=== PATIENT | female | born 1965 | race Caucasian/White ===

== ENCOUNTER 2019-12-09 13:51 | Inpatient (IN) | payer OTHER, MEDICAID ==
[~2019-12-09] VITALS: Ht 167.6 cm; Wt 56.9 kg
[2019-12-09 16:22] VITALS: BP 119/77
[2019-12-09] MEDS ORDERED: SODIUM CHLORIDE 0.9% 1,000 ML IV SCH (16:30)
[2019-12-09] MEDS ORDERED: PLEASE ENTER HEIGHT AND WEIGHT MC SCH (16:30)
[2019-12-09] MEDS ORDERED: SODIUM CHLORIDE 0.9% 1,000ML IVBOLUS ONE ×3 (16:30→23:30)
[2019-12-09] MEDS ORDERED: ACETAMINOPHEN 325 MG TABLET PO PRN (16:30)
[2019-12-09] MEDS ORDERED: DIPHENHYDRAMINE 25 MG CAPSULE PO PRN (16:30)
[2019-12-09] MEDS ORDERED: PLEASE ENTER ALLERGIES MC SCH (16:30)
[2019-12-09] MEDS ORDERED: BUPR-86 PO (17:05)
[2019-12-09] MEDS ORDERED: ALPR0.5T PO (17:06)
[2019-12-09] MEDS ORDERED: AMLO1CAP54 PO (17:09)
[2019-12-09 19:35] VITALS: BP 92/58
[2019-12-09] MEDS: SODIUM CHLORIDE 0.9% 100 ML IV SCH ×8 (21:00→23:48)
[2019-12-09 22:35] LABS: ALBUMIN 1.8 g/dL (3.4-5.0); ANION GAP 10 mmol/L (5-15); CALCIUM 7.9 mg/dL (8.5-10.1); CHLORIDE 110 mmol/L (98-107)
[2019-12-09] MEDS ORDERED: ONDANSETRON 2MG/ML, 2ML IVPush PRN (23:30)
[2019-12-10] VITALS (12 sets, daily range): BP systolic 96–143; BP diastolic 57–85
[2019-12-10] MEDS: SODIUM CHLORIDE 0.9% 100 ML IV SCH (00:12)
[2019-12-10] MEDS ORDERED: SODIUM CHLORIDE 0.9% 1,000ML IVBOLUS ONE (03:30)
[2019-12-10 06:02] LABS: MEAN CORPUSCULAR HEMOGLOBIN 32.7 pg (27.0-34.8); MEAN PLATELET VOLUME 8.6 fL (7.4-10.4); PLATELET COUNT 419 x10^3/uL (130-400); RED BLOOD COUNT 2.14 x10^6/uL (3.82-5.3); RED CELL DISTRIBUTION WIDTH 19.4 % (9.6-15.2)
[2019-12-10 06:03] LABS: CHLORIDE 117 mmol/L (98-107)
[2019-12-10 06:21] LABS: ALANINE AMINOTRANSFERASE 12 U/L (12-78); ALBUMIN 1.6 g/dL (3.4-5.0); ALKALINE PHOSPHATASE 62 U/L (45-117); ANION GAP 10 mmol/L (5-15); BILIRUBIN,TOTAL 0.2 mg/dL (0.2-1.0); CALCIUM 7.7 mg/dL (8.5-10.1); CREATININE 9.73 mg/dL (0.55-1.02); TOTAL PROTEIN 5.4 g/dL (6.4-8.2)
[2019-12-10 06:33] LABS: BASOPHILS % (AUTO) 0 % (0-1); EOSINOPHILS # (AUTO) 0.02 x10^3/uL (0-0.4); EOSINOPHILS % (AUTO) 0 % (1-7); LYMPHOCYTES # (AUTO) 0.16 x10^3/uL (1-3.4); LYMPHOCYTES % (AUTO) 2 % (22-44); MD SCAN; MONOCYTES # (AUTO) 0.53 x10^3/uL (0.2-0.8); MONOCYTES % (AUTO) 7 % (2-9); NEUTROPHILS # (AUTO) 7.46 x10^3/uL (1.8-6.8); NEUTROPHILS % (AUTO) 91 % (42-75)
[2019-12-10] MEDS ORDERED: CHLORHEXIDINE 15 ML UDC ONE (08:14)
[2019-12-10] MEDS ORDERED: CHLORHEXIDINE 15 ML UDC MM STA (08:41)
[2019-12-10] MEDS ORDERED: BENAZEPRIL 10 MG TABLET PO SCH (09:00)
[2019-12-10] MEDS ORDERED: AMLODIPINE 5 MG TABLET PO SCH (09:00)
[2019-12-10] MEDS ORDERED: FENTANYL PF 100 MCG/2ML ONE (09:09)
[2019-12-10] MEDS ORDERED: MIDAZOLAM 1 MG/ML, 2ML ONE (09:09)
[2019-12-10] MEDS ORDERED: LIDOCAINE 2%, 20ML ONE (09:10)
[2019-12-10] MEDS ORDERED: PHENYLEPHRINE 10 MG/ML ONE (09:10)
[2019-12-10] MEDS ORDERED: OMNIPAQUE 350 MG/ML, 50 ML BOTTLE IV ONE (09:36)
[2019-12-10] MEDS ORDERED: CEFAZOLIN 1,000 MG ONE (09:59)
[2019-12-10] MEDS ORDERED: ONDANSETRON 2MG/ML, 2ML ONE (09:59)
[2019-12-10] MEDS ORDERED: DEXAMETHASONE 4 MG/ML, 1ML ONE (09:59)
[2019-12-10] MEDS ORDERED: PROPOFOL 10 MG/ML, 20ML ONE (09:59)
[2019-12-10] MEDS ORDERED: PROMETHAZINE 25 MG SUPP PR PRN (10:00)
[2019-12-10] MEDS ORDERED: PROMETHAZINE 25 MG/ML, 1ML IVPush PRN (10:00)
[2019-12-10] MEDS ORDERED: OXYcodone 5 MG/5 ML ORAL.SOL UDC PO PRN (10:00)
[2019-12-10] MEDS ORDERED: ONDANSETRON 2MG/ML, 2ML IVPush PRN (10:00)
[2019-12-10] MEDS ORDERED: FENTANYL PF 100 MCG/2ML IV PRN (10:00)
[2019-12-10] MEDS ORDERED: HYDROmorphone 1 MG/ML, 1ML INJ IVPush PRN (10:00)
[2019-12-10] MEDS ORDERED: ACETAMINOPHEN 325 MG TABLET PO PRN (10:00)
[2019-12-10] MEDS ORDERED: MEPERIDINE/PF 25MG/ML,1ML ONE (10:36)
[2019-12-10] MEDS ORDERED: ACETAMINOPHEN 325 MG TABLET PO ONE (11:00)
[2019-12-10] MEDS ORDERED: MEPERIDINE/PF 25MG/0.5ML IVPush PRN (11:00)
[2019-12-10] MEDS ORDERED: DIPHENHYDRAMINE 12.5MG/5ML, 10ML UDC PO ONE (11:00)
[2019-12-10] MEDS: AMLODIPINE 5 MG TABLET PO SCH (12:39)
[2019-12-10] MEDS: BUPROPION SR 150 MG TABLET PO SCH (12:39)
[2019-12-10] MEDS: NICOTINE 21 MG/24 HR PATCH.TD24 TD SCH (15:48)
[2019-12-10 17:19] LABS: MICROSCOPIC INDICATED
[2019-12-10 19:37] LABS: ANION GAP 11 mmol/L (5-15); CALCIUM 8.1 mg/dL (8.5-10.1); CHLORIDE 117 mmol/L (98-107); CREATININE 8.07 mg/dL (0.55-1.02)
[2019-12-10] MEDS: SODIUM CHLORIDE 0.9% 1,000 ML IV SCH (20:47)
[2019-12-10] MEDS ORDERED: SODIUM CHLORIDE 0.9% 1,000 ML IV SCH (21:00)
[2019-12-11] MEDS: SODIUM CHLORIDE 0.9% 1,000 ML IV SCH ×4 (00:42→22:00)
[2019-12-11 02:39] VITALS: BP 112/66
[2019-12-11 05:34] LABS: ANION GAP 8 mmol/L (5-15); CALCIUM 8.3 mg/dL (8.5-10.1); CHLORIDE 122 mmol/L (98-107); CREATININE 6.75 mg/dL (0.55-1.02)
[2019-12-11 05:36] LABS: BASOPHILS # (AUTO) 0.02 x10^3/uL (0-0.1); BASOPHILS % (AUTO) 0 % (0-1); EOSINOPHILS % (AUTO) 0 % (1-7); LYMPHOCYTES # (AUTO) 0.27 x10^3/uL (1-3.4); LYMPHOCYTES % (AUTO) 2 % (22-44); MD NO; MEAN CORPUSCULAR HEMOGLOBIN 29.8 pg (27.0-34.8); MEAN CORPUSCULAR HGB CONC 31.6 g/dL (32.4-35.8); MEAN CORPUSCULAR VOLUME 94.3 fL (80-100); MEAN PLATELET VOLUME 8.2 fL (7.4-10.4); MONOCYTES # (AUTO) 0.45 x10^3/uL (0.2-0.8); MONOCYTES % (AUTO) 4 % (2-9); NEUTROPHILS # (AUTO) 11.44 x10^3/uL (1.8-6.8); NEUTROPHILS % (AUTO) 94 % (42-75); PLATELET COUNT 415 x10^3/uL (130-400); RED BLOOD COUNT 3.43 x10^6/uL (3.82-5.3)
[2019-12-11 07:24] VITALS: BP 133/81
[2019-12-11] MEDS: BUPROPION SR 150 MG TABLET PO SCH (08:22)
[2019-12-11] MEDS: AMLODIPINE 5 MG TABLET PO SCH (08:23)
[2019-12-11] MEDS ORDERED: NICOTINE 21 MG/24 HR PATCH.TD24 TD SCH (09:00)
[2019-12-11] MEDS ORDERED: morphine SULFATE 10 MG/ML, 1ML IVPush PRN (11:00)
[2019-12-11] MEDS: SODIUM CHLORIDE 0.45% 1,000 ML IV SCH ×2 (11:45→20:08)
[2019-12-11] MEDS: BENAZEPRIL 10 MG TABLET PO SCH (12:00)
[2019-12-11 13:20] VITALS: BP 114/74
[2019-12-11] MEDS: NICOTINE 21 MG/24 HR PATCH.TD24 TD SCH (16:34)
[2019-12-11 19:16] VITALS: BP 121/80
[2019-12-12 02:09] VITALS: BP 134/81
[2019-12-12] MEDS: SODIUM CHLORIDE 0.45% 1,000 ML IV SCH ×3 (02:17→16:33)
[2019-12-12] MEDS: SODIUM CHLORIDE 0.9% 1,000 ML IV SCH ×3 (02:51→16:28)
[2019-12-12 04:09] LABS: BASOPHILS # (AUTO) 0.06 x10^3/uL (0-0.1); BASOPHILS % (AUTO) 1 % (0-1); EOSINOPHILS # (AUTO) 0.05 x10^3/uL (0-0.4); EOSINOPHILS % (AUTO) 1 % (1-7); LYMPHOCYTES # (AUTO) 0.29 x10^3/uL (1-3.4); LYMPHOCYTES % (AUTO) 4 % (22-44); MD NO; MEAN CORPUSCULAR HEMOGLOBIN 30.5 pg (27.0-34.8); MEAN CORPUSCULAR HGB CONC 33.1 g/dL (32.4-35.8); MEAN CORPUSCULAR VOLUME 92.1 fL (80-100); MEAN PLATELET VOLUME 8.1 fL (7.4-10.4); MONOCYTES # (AUTO) 0.57 x10^3/uL (0.2-0.8); MONOCYTES % (AUTO) 7 % (2-9); NEUTROPHILS # (AUTO) 7.44 x10^3/uL (1.8-6.8); NEUTROPHILS % (AUTO) 89 % (42-75); PLATELET COUNT 384 x10^3/uL (130-400); RED BLOOD COUNT 3.34 x10^6/uL (3.82-5.3); RED CELL DISTRIBUTION WIDTH 21.2 % (9.6-15.2)
[2019-12-12 04:21] LABS: ANION GAP 8 mmol/L (5-15); CALCIUM 7.7 mg/dL (8.5-10.1); CHLORIDE 120 mmol/L (98-107); CREATININE 4.39 mg/dL (0.55-1.02)
[2019-12-12 07:43] VITALS: BP 138/84
[2019-12-12] MEDS: AMPICILLIN 500 MG in SODIUM CHLORIDE 0.9% 100 ML IV SCH ×3 (08:05→20:19)
[2019-12-12] MEDS: BUPROPION SR 150 MG TABLET PO SCH (08:05)
[2019-12-12] MEDS: AMLODIPINE 5 MG TABLET PO SCH (08:05)
[2019-12-12] MEDS: NICOTINE 21 MG/24 HR PATCH.TD24 TD SCH (08:06)
[2019-12-12] MEDS: BENAZEPRIL 10 MG TABLET PO SCH (08:07)
[2019-12-12 13:49] VITALS: BP 131/87
[2019-12-12 19:16] VITALS: BP 135/87
[2019-12-13] MEDS: SODIUM CHLORIDE 0.45% 1,000 ML IV SCH ×3 (00:35→14:57)
[2019-12-13] MEDS: AMPICILLIN 500 MG in SODIUM CHLORIDE 0.9% 100 ML IV SCH ×3 (02:15→14:57)
[2019-12-13 04:00] VITALS: BP 137/87
[2019-12-13 06:06] LABS: ANION GAP 9 mmol/L (5-15); CALCIUM 7.2 mg/dL (8.5-10.1); CHLORIDE 116 mmol/L (98-107)
[2019-12-13 06:09] LABS: CREATININE 2.59 mg/dL (0.55-1.02)
[2019-12-13 08:00] VITALS: BP 107/72
[2019-12-13] MEDS: AMLODIPINE 5 MG TABLET PO SCH (08:07)
[2019-12-13] MEDS: BUPROPION SR 150 MG TABLET PO SCH (08:07)
[2019-12-13] MEDS: BENAZEPRIL 10 MG TABLET PO SCH (08:07)
[2019-12-13] MEDS: NICOTINE 21 MG/24 HR PATCH.TD24 TD SCH (09:53)
[2019-12-13 12:34] LABS: CLOSTRIDIUM DIFFICILE ANTIGEN NEGATIVE; CLOSTRIDIUM DIFFICILE TOXIN NEGATIVE (Negative)
[2019-12-13 12:42] VITALS: BP 128/82
[2019-12-13] MEDS ORDERED: LOPERAMIDE 2 MG CAPSULE PO PRN (16:00)
[2019-12-13] MEDS: LORazepam 0.5MG TABLET PO PRN (17:03)
[2019-12-13] MEDS: AMPICILLIN 500MG CAPSULE PO SCH ×2 (17:03→21:34)
[2019-12-13] MEDS: FLUCONAZOLE 50 MG TABLET PO SCH (17:04)
[2019-12-13 17:18] LABS: ANION GAP 8 mmol/L (5-15); CALCIUM 6.9 mg/dL (8.5-10.1); CHLORIDE 115 mmol/L (98-107)
[2019-12-13 18:52] VITALS: BP 135/88
[2019-12-14 01:27] VITALS: BP 120/82
[2019-12-14 04:16] LABS: ANION GAP 8 mmol/L (5-15); CALCIUM 6.8 mg/dL (8.5-10.1); CHLORIDE 114 mmol/L (98-107)
[2019-12-14 04:17] LABS: CREATININE 2.61 mg/dL (0.55-1.02)
[2019-12-14] MEDS: AMPICILLIN 500MG CAPSULE PO SCH ×4 (06:34→20:42)
[2019-12-14 08:20] VITALS: BP 128/85
[2019-12-14] MEDS ORDERED: FLUCONAZOLE 50 MG TABLET PO SCH (09:00)
[2019-12-14] MEDS ORDERED: FLUCONAZOLE 100 MG TABLET ONE (09:34)
[2019-12-14] MEDS: BUPROPION SR 150 MG TABLET PO SCH (09:40)
[2019-12-14] MEDS: BENAZEPRIL 10 MG TABLET PO SCH (09:41)
[2019-12-14] MEDS: AMLODIPINE 5 MG TABLET PO SCH (09:41)
[2019-12-14] MEDS: FLUCONAZOLE 50 MG TABLET PO SCH (09:42)
[2019-12-14] MEDS: NICOTINE 21 MG/24 HR PATCH.TD24 TD SCH (12:30)
[2019-12-14] MEDS: SODIUM CHLORIDE 0.9% 1,000 ML IV SCH ×2 (14:34→23:51)
[2019-12-14 14:38] VITALS: BP 131/84
[2019-12-14 18:46] VITALS: BP 133/80
[2019-12-15 00:09] VITALS: BP 111/74
[2019-12-15 05:35] LABS: ANION GAP 8 mmol/L (5-15); CALCIUM 6.4 mg/dL (8.5-10.1); CHLORIDE 112 mmol/L (98-107); CREATININE 2.94 mg/dL (0.55-1.02)
[2019-12-15] MEDS: AMPICILLIN 500MG CAPSULE PO SCH ×4 (05:45→21:04)
[2019-12-15 07:19] VITALS: BP 109/70
[2019-12-15] MEDS: BENAZEPRIL 10 MG TABLET PO SCH (09:00)
[2019-12-15] MEDS: AMLODIPINE 5 MG TABLET PO SCH (09:00)
[2019-12-15] MEDS ORDERED: FLUCONAZOLE 100 MG TABLET ONE (09:22)
[2019-12-15] MEDS: FLUCONAZOLE 50 MG TABLET PO SCH (09:29)
[2019-12-15] MEDS: SODIUM CHLORIDE 0.9% 1,000 ML IV SCH ×2 (09:29→19:29)
[2019-12-15] MEDS: BUPROPION SR 150 MG TABLET PO SCH (09:29)
[2019-12-15] MEDS: NICOTINE 21 MG/24 HR PATCH.TD24 TD SCH (09:29)
[2019-12-15 13:13] VITALS: BP 132/89
[2019-12-15] MEDS: LORazepam 0.5MG TABLET PO PRN (17:31)
[2019-12-15 18:42] VITALS: BP 117/77
[2019-12-16] MEDS: LORazepam 0.5MG TABLET PO PRN ×2 (01:02→09:17)
[2019-12-16 02:57] VITALS: BP 116/69
[2019-12-16] MEDS: SODIUM CHLORIDE 0.9% 1,000 ML IV SCH (04:28)
[2019-12-16] MEDS: AMPICILLIN 500MG CAPSULE PO SCH ×3 (06:26→16:37)
[2019-12-16 08:20] VITALS: BP 117/75
[2019-12-16] MEDS: AMLODIPINE 5 MG TABLET PO SCH (09:17)
[2019-12-16] MEDS: BUPROPION SR 150 MG TABLET PO SCH (09:17)
[2019-12-16] MEDS: BENAZEPRIL 10 MG TABLET PO SCH ×2 (09:17→09:19)
[2019-12-16] MEDS ORDERED: FLUCONAZOLE 200 MG TABLET ONE (09:27)
[2019-12-16] MEDS: FLUCONAZOLE 50 MG TABLET PO SCH (09:30)
[2019-12-16] MEDS: NICOTINE 21 MG/24 HR PATCH.TD24 TD SCH (11:00)
[2019-12-16] MEDS ORDERED: FUROSEMIDE 20 MG/2 ML ONE (11:59)
[2019-12-16 14:11] VITALS: BP 117/65
[2019-12-16 14:56] LABS: BASOPHILS # (AUTO) 0.01 x10^3/uL (0-0.1); BASOPHILS % (AUTO) 0 % (0-1); EOSINOPHILS # (AUTO) 0.19 x10^3/uL (0-0.4); EOSINOPHILS % (AUTO) 2 % (1-7); LYMPHOCYTES # (AUTO) 0.25 x10^3/uL (1-3.4); LYMPHOCYTES % (AUTO) 3 % (22-44); MD NO; MEAN CORPUSCULAR HEMOGLOBIN 30.5 pg (27.0-34.8); MEAN CORPUSCULAR HGB CONC 32.6 g/dL (32.4-35.8); MEAN CORPUSCULAR VOLUME 93.8 fL (80-100); MEAN PLATELET VOLUME 8.4 fL (7.4-10.4); MONOCYTES # (AUTO) 0.59 x10^3/uL (0.2-0.8); MONOCYTES % (AUTO) 6 % (2-9); NEUTROPHILS # (AUTO) 8.69 x10^3/uL (1.8-6.8); NEUTROPHILS % (AUTO) 89 % (42-75); PLATELET COUNT 290 x10^3/uL (130-400); RED BLOOD COUNT 3.41 x10^6/uL (3.82-5.3); RED CELL DISTRIBUTION WIDTH 20.6 % (9.6-15.2)
[2019-12-16 15:03] LABS: ANION GAP 8 mmol/L (5-15); CALCIUM 6.1 mg/dL (8.5-10.1); CHLORIDE 113 mmol/L (98-107); CREATININE 3.02 mg/dL (0.55-1.02)
[2019-12-16] MEDS ORDERED: AMPI500C2 PO (16:12)
[2019-12-16] MEDS ORDERED: LOPE2CAP PO (16:12)
[2019-12-16] MEDS ORDERED: FLUC100T PEG (16:12)
== END 2019-12-16 17:21 | disposition home or self-care (01) | DRG 659 ==
LOC: 4NW 15:44
PROVIDERS: ADMIT Specialist; ATTEND Specialist
PROC: 0TP98DZ Removal of Intraluminal Device from Ureter, Via Natural or Artificial Opening Endoscopic (ICD-10-PCS; 2019-12-10)
PROC: BT141ZZ Fluoroscopy of Kidneys, Ureters and Bladder using Low Osmolar Contrast (ICD-10-PCS; 2019-12-10)
PROC: 30233N1 Transfusion of Nonautologous Red Blood Cells into Peripheral Vein, Percutaneous Approach (ICD-10-PCS; 2019-12-10)
PROC: 0T778DZ Dilation of Left Ureter with Intraluminal Device, Via Natural or Artificial Opening Endoscopic (ICD-10-PCS; principal; 2019-12-10 08:30)
DX: T83.193A Other mechanical complication of other urinary stent, initial encounter (principal); E43 Unspecified severe protein-calorie malnutrition; E87.0 Hyperosmolality and hypernatremia; E87.2 Acidosis; N17.9 Acute kidney failure, unspecified; N13.6 Pyonephrosis; C53.9 Malignant neoplasm of cervix uteri, unspecified; D64.9 Anemia, unspecified; Z68.20 Body mass index [BMI] 20.0-20.9, adult; Z20.828 Contact with and (suspected) exposure to other viral communicable diseases; E86.0 Dehydration; E87.5 Hyperkalemia; E87.8 Other disorders of electrolyte and fluid balance, not elsewhere classified; F41.9 Anxiety disorder, unspecified; Z72.0 Tobacco use; Z90.710 Acquired absence of both cervix and uterus; Z92.3 Personal history of irradiation; Y84.6 Urinary catheterization as the cause of abnormal reaction of the patient, or of later complication, without mention of misadventure at the time of the procedure; Y92.89 Other specified places as the place of occurrence of the external cause
CPT/HCPCS: 36415; 74018; 74420; 87106; J3490; 76770; 78708; 80048; 80053; 81001; 82040; 83735; 85025; 86850; 86900; 86923; 87070; 87075; 87077; 87086; 87186; 87205; 87324; 87635; G0378; J0690; J1100; J2250; J2405; J2704; J3010; Q9967; A9562; C1758; C1769; C2617; C9898; J0290; J1940; J2370; J7030; P9016

== ENCOUNTER → 2020-04-24 | Outpatient (CLI) | payer MEDICAID ==
[~2020-04-24] MED LIST: ALPR0.5T PO; AMLO-150 PO; AMLO1CAP54 PO; AMPI500C2 PO; BUPR-86 PO; FLUC100T PEG; LOPE2CAP PO; [UNRECOGNIZED DRUG - OTHER] PO; [UNRECOGNIZED DRUG - OTHER] PO
[2020-04-24 13:10] LABS: CHLORIDE 108 mmol/L (98-107)
[2020-04-24 13:16] LABS: ALANINE AMINOTRANSFERASE 16 U/L (12-78); ALBUMIN 3.4 g/dL (3.4-5.0); ALKALINE PHOSPHATASE 84 U/L (45-117); ANION GAP 6 mmol/L (5-15); BILIRUBIN,TOTAL 0.2 mg/dL (0.2-1.0); CALCIUM 9.2 mg/dL (8.5-10.1); CREATININE 2.09 mg/dL (0.55-1.02); TOTAL PROTEIN 7.7 g/dL (6.4-8.2)
[2020-04-24 13:18] LABS: INTERNATIONAL NORMALIZED RATIO 0.95 (0.93-1.1); PROTHROMBIN TIME 10.1 Seconds (9.6-11.5)
[2020-04-24 13:25] LABS: BASOPHILS % (AUTO) 0 % (0-1); EOSINOPHILS % (AUTO) 3 % (1-7); LYMPHOCYTES % (AUTO) 6 % (22-44); MEAN CORPUSCULAR HEMOGLOBIN 31.1 pg (27.0-34.8); MEAN CORPUSCULAR HGB CONC 32.8 g/dL (32.4-35.8); MEAN PLATELET VOLUME 8.9 fL (7.4-10.4); MONOCYTES % (AUTO) 8 % (2-9); NEUTROPHILS % (AUTO) 83 % (42-75); PLATELET COUNT 366 x10^3/uL (130-400); RED CELL DISTRIBUTION WIDTH 14.4 % (9.6-15.2)
[2020-04-24 13:27] LABS: MD NO
== END | disposition home or self-care (01) ==
LOC: STAR 10:49
PROVIDERS: ATTEND Specialist
DX: Z01.812 Encounter for preprocedural laboratory examination (principal); Z20.828 Contact with and (suspected) exposure to other viral communicable diseases; C53.0 Malignant neoplasm of endocervix; R87.810 Cervical high risk human papillomavirus (HPV) DNA test positive; R87.619 Unspecified abnormal cytological findings in specimens from cervix uteri; N17.9 Acute kidney failure, unspecified; E83.42 Hypomagnesemia
CPT/HCPCS: 71046; 80053; 85025; 85610; 85730; 87635; 93005

== ENCOUNTER 2020-04-28 09:07 | Day surgery (SDC) | payer OTHER, MEDICAID ==
[~2020-04-28] VITALS: Ht 167.6 cm; Wt 53.4 kg
[2020-04-28 10:27] VITALS: BP 127/83
[2020-04-28] MEDS ORDERED: CHLORHEXIDINE 15 ML UDC MM ONE (10:30)
[2020-04-28] MEDS ORDERED: SODIUM CHLORIDE 0.9% 1,000 ML IV SCH (11:00)
[2020-04-28] MEDS ORDERED: CEFOTETAN PMX 2GM/50ML 50 ML IVPB ONE (13:00)
[2020-04-28] MEDS ORDERED: FENTANYL PF 100 MCG/2ML ONE (14:12)
[2020-04-28] MEDS ORDERED: MIDAZOLAM 1 MG/ML, 2ML ONE (14:12)
[2020-04-28] MEDS ORDERED: PROPOFOL 10 MG/ML, 20ML ONE (14:16)
[2020-04-28] MEDS ORDERED: CEFOTETAN 2 GM ONE (14:18)
[2020-04-28] MEDS ORDERED: DEXAMETHASONE 4 MG/ML, 1ML ONE (14:18)
[2020-04-28] MEDS ORDERED: ROCURONIUM 10 MG/ML,10ML ONE (14:18)
[2020-04-28] MEDS ORDERED: ONDANSETRON 2MG/ML, 2ML ONE (14:18)
[2020-04-28] MEDS ORDERED: SUCCINYLCHOLINE 20 MG/ML, 10ML ONE (14:18)
[2020-04-28] MEDS ORDERED: DIPHENHYDRAMINE 50 MG/ML, 1ML IVPush PRN ×2 (15:00)
[2020-04-28] MEDS ORDERED: EPHEDRINE 50 MG/ML, 1ML IVPush PRN (15:00)
[2020-04-28] MEDS ORDERED: OMNIPAQUE 350 MG/ML, 50 ML BOTTLE ONE (15:00)
[2020-04-28] MEDS ORDERED: FENTANYL PF 100 MCG/2ML IV PRN (15:00)
[2020-04-28] MEDS ORDERED: HYDROmorphone 1 MG/ML, 1ML INJ IVPush PRN (15:00)
[2020-04-28] MEDS ORDERED: MIDAZOLAM 1 MG/ML, 2ML IV PRN (15:00)
[2020-04-28] MEDS ORDERED: ONDANSETRON 2MG/ML, 2ML IVPush PRN (15:00)
[2020-04-28] MEDS ORDERED: hydrALAzine 20 MG/ML, 1ML IV PRN (15:00)
[2020-04-28] MEDS ORDERED: ACETAMINOPHEN 325 MG TABLET PO PRN (15:00)
[2020-04-28] MEDS ORDERED: OXYcodone 5 MG/5 ML ORAL.SOL UDC PO PRN (15:00)
[2020-04-28] MEDS ORDERED: MEPERIDINE/PF 25MG/0.5ML IVPush PRN (15:00)
[2020-04-28] MEDS ORDERED: ALBUTEROL SULFATE 2.5 MG/3 ML NPPB PRN (15:00)
[2020-04-28] MEDS ORDERED: PROMETHAZINE 25 MG/ML, 1ML IVPush PRN (15:00)
[2020-04-28] MEDS ORDERED: DIAZEPAM 5 MG/ML, 2ML IVPush PRN (15:00)
[2020-04-28] MEDS ORDERED: LABETALOL 5MG/ML, 20ML IV PRN (15:00)
[2020-04-28] MEDS ORDERED: PROMETHAZINE 12.5 MG SUPP PR PRN (15:00)
[2020-04-28] MEDS ORDERED: ACETAMINOPHEN 650 MG/20.3 ML UDC ONE (15:11)
== END 2020-04-28 17:00 | disposition home or self-care (01) ==
LOC: OUT 09:07
PROVIDERS: ATTEND Specialist
DX: Z46.6 Encounter for fitting and adjustment of urinary device (principal); N30.40 Irradiation cystitis without hematuria; I12.9 Hypertensive chronic kidney disease with stage 1 through stage 4 chronic kidney disease, or unspecified chronic kidney disease; N18.9 Chronic kidney disease, unspecified; F41.9 Anxiety disorder, unspecified; F17.210 Nicotine dependence, cigarettes, uncomplicated; Z79.899 Other long term (current) drug therapy; Z85.41 Personal history of malignant neoplasm of cervix uteri; Z88.8 Allergy status to other drugs, medicaments and biological substances; Z90.710 Acquired absence of both cervix and uterus; Z92.21 Personal history of antineoplastic chemotherapy
CPT/HCPCS: 52005; 74420; 87070; 87075; 87106; 87205; C1758; C1769; J0330; J1100; J2250; J2405; J2704; J3010; J7030; Q9967

== ENCOUNTER → 2020-05-14 | Outpatient (CLI) | payer MEDICAID | END | disposition home or self-care (01) | LOC: CFH 07:49 | PROVIDERS: ATTEND Nurse Practitioner Acute Care | DX: Z51.11 Encounter for antineoplastic chemotherapy (principal); C53.0 Malignant neoplasm of endocervix; R87.810 Cervical high risk human papillomavirus (HPV) DNA test positive; R87.619 Unspecified abnormal cytological findings in specimens from cervix uteri; R33.9 Retention of urine, unspecified; N17.9 Acute kidney failure, unspecified; R30.0 Dysuria; R50.9 Fever, unspecified; E83.42 Hypomagnesemia; E87.1 Hypo-osmolality and hyponatremia; E87.5 Hyperkalemia; E86.0 Dehydration; D64.9 Anemia, unspecified; R11.0 Nausea; N13.30 Unspecified hydronephrosis | CPT/HCPCS: 76770 ==

== ENCOUNTER → 2020-06-04 | Outpatient (CLI) | payer MEDICAID, OTHER ==
[~2020-06-04] MED LIST changes: +FUROSEMIDE 20 MG/2 ML ONE
== END | disposition home or self-care (01) ==
LOC: RAD 12:36
PROVIDERS: ATTEND Obstetrics & Gynecology
DX: Z51.11 Encounter for antineoplastic chemotherapy (principal); C53.0 Malignant neoplasm of endocervix; N17.9 Acute kidney failure, unspecified; R87.810 Cervical high risk human papillomavirus (HPV) DNA test positive; R33.9 Retention of urine, unspecified; R30.0 Dysuria; R50.9 Fever, unspecified; E83.42 Hypomagnesemia; E86.0 Dehydration; D64.9 Anemia, unspecified; E87.1 Hypo-osmolality and hyponatremia; E87.5 Hyperkalemia; R11.0 Nausea; R87.619 Unspecified abnormal cytological findings in specimens from cervix uteri
CPT/HCPCS: 78708; A9562; J1940

== ENCOUNTER → 2020-07-13 | Outpatient (CLI) | payer MEDICAID ==
[~2020-07-13] MED LIST changes: -FUROSEMIDE 20 MG/2 ML ONE
== END | disposition home or self-care (01) ==
LOC: RAD 13:34
PROVIDERS: ATTEND Specialist
DX: C53.0 Malignant neoplasm of endocervix (principal); N13.30 Unspecified hydronephrosis; R11.0 Nausea; R33.9 Retention of urine, unspecified; R30.0 Dysuria; R50.9 Fever, unspecified; E83.42 Hypomagnesemia; E86.0 Dehydration; Z51.11 Encounter for antineoplastic chemotherapy; D64.9 Anemia, unspecified; E87.5 Hyperkalemia; E87.1 Hypo-osmolality and hyponatremia; N17.9 Acute kidney failure, unspecified; R87.810 Cervical high risk human papillomavirus (HPV) DNA test positive; R87.619 Unspecified abnormal cytological findings in specimens from cervix uteri; R79.89 Other specified abnormal findings of blood chemistry; F41.1 Generalized anxiety disorder
CPT/HCPCS: 76770

== ENCOUNTER → 2020-10-08 | Outpatient (CLI) | payer MEDICAID ==
[2020-10-08 13:53] LABS: BASOPHILS % (AUTO) 0 % (0-1); EOSINOPHILS % (AUTO) 3 % (1-7); INTERNATIONAL NORMALIZED RATIO 0.94 (0.93-1.1); LYMPHOCYTES % (AUTO) 5 % (22-44); MEAN CORPUSCULAR HGB CONC 32.7 g/dL (32.4-35.8); MEAN PLATELET VOLUME 8.6 fL (7.4-10.4); MONOCYTES % (AUTO) 7 % (2-9); NEUTROPHILS % (AUTO) 85 % (42-75); PLATELET COUNT 454 x10^3/uL (130-400); PROTHROMBIN TIME 10.1 Seconds (9.6-11.5); RED BLOOD COUNT 3.51 x10^6/uL (3.82-5.3); RED CELL DISTRIBUTION WIDTH 14.1 % (9.6-15.2)
[2020-10-08 13:55] LABS: ALANINE AMINOTRANSFERASE 13 U/L (12-78); ALBUMIN 3.3 g/dL (3.4-5.0); ANION GAP 7 mmol/L (5-15); CALCIUM 9.4 mg/dL (8.5-10.1); CHLORIDE 106 mmol/L (98-107); CREATININE 1.86 mg/dL (0.55-1.02)
[2020-10-08 13:58] LABS: ALKALINE PHOSPHATASE 100 U/L (45-117); BILIRUBIN,TOTAL 0.3 mg/dL (0.2-1.0); TOTAL PROTEIN 8.1 g/dL (6.4-8.2)
== END | disposition home or self-care (01) ==
LOC: STAR 12:21
PROVIDERS: ATTEND Specialist
DX: Z01.812 Encounter for preprocedural laboratory examination (principal); Z20.822 Contact with and (suspected) exposure to COVID-19; Z01.818 Encounter for other preprocedural examination
CPT/HCPCS: 36415; 80053; 85025; 85610; 85730; 93005; U0003; U0005

== ENCOUNTER 2020-10-13 07:25 | Day surgery (SDC) | payer MEDICAID ==
[~2020-10-13] VITALS: Ht 167.6 cm; Wt 51.7 kg
[~2020-10-13 07:25] MED LIST changes: +OMNIPAQUE 350 MG/ML, 50 ML BOTTLE ONE
[2020-10-13] MEDS ORDERED: CHLORHEXIDINE 15 ML UDC PO ONE (08:00)
[2020-10-13] MEDS ORDERED: CEFOTETAN PMX 2GM/50ML 50 ML IVPB ONE (08:00)
[2020-10-13 08:04] VITALS: BP 111/76
[2020-10-13] MEDS ORDERED: HYDR-3237 PO (08:47)
[2020-10-13] MEDS ORDERED: ACET-1600 PO (08:47)
[2020-10-13] MEDS ORDERED: LACTATED RINGERS 1,000 ML IV SCH (09:00)
[2020-10-13] MEDS ORDERED: MIDAZOLAM 1 MG/ML, 2ML ONE (10:03)
[2020-10-13] MEDS ORDERED: FENTANYL PF 250 MCG/5ML ONE (10:04)
[2020-10-13] MEDS ORDERED: ONDANSETRON 2MG/ML, 2ML IVPush PRN (11:00)
[2020-10-13] MEDS ORDERED: LORazepam 2 MG/ML, 1ML IVPush PRN (11:00)
[2020-10-13] MEDS ORDERED: ACETAMINOPHEN 325 MG TABLET PO PRN (11:00)
[2020-10-13] MEDS ORDERED: PROMETHAZINE 25 MG/ML, 1ML IVPush PRN (11:00)
[2020-10-13] MEDS ORDERED: HYDROmorphone 1 MG/ML, 1ML INJ IVPush PRN (11:00)
[2020-10-13] MEDS ORDERED: PROMETHAZINE 25 MG SUPP PR PRN (11:00)
[2020-10-13] MEDS ORDERED: morphine SULFATE 10 MG/ML, 1ML IVPush PRN (11:00)
[2020-10-13] MEDS ORDERED: METHOCARBAMOL 1,000 MG in DEXTROSE 5% 100 ML IV PRN (11:00)
[2020-10-13] MEDS ORDERED: FENTANYL PF 100 MCG/2ML IV PRN (11:00)
[2020-10-13] MEDS ORDERED: OXYcodone 5 MG/5 ML ORAL.SOL UDC PO PRN (11:00)
[2020-10-13] MEDS ORDERED: MEPERIDINE/PF 25MG/0.5ML IVPush PRN (11:00)
[2020-10-13] MEDS ORDERED: OMNIPAQUE 350 MG/ML, 50 ML BOTTLE ONE (11:06)
[2020-10-13] MEDS ORDERED: DEXAMETHASONE 4 MG/ML, 1ML ONE (11:34)
[2020-10-13] MEDS ORDERED: ONDANSETRON 2MG/ML, 2ML ONE (11:34)
[2020-10-13] MEDS ORDERED: CEFAZOLIN 1,000 MG ONE (11:34)
[2020-10-13] MEDS ORDERED: PROPOFOL 10 MG/ML, 20ML ONE (11:34)
[2020-10-13] MEDS ORDERED: HYDROmorphone 1 MG/ML, 1ML INJ ONE ×2 (11:34→12:47)
[2020-10-13] MEDS ORDERED: OXYcodone 5 MG/5 ML ORAL.SOL UDC ONE (13:30)
== END 2020-10-13 15:30 | disposition home or self-care (01) ==
LOC: OUT 07:25
PROVIDERS: ATTEND Specialist
DX: N30.40 Irradiation cystitis without hematuria (principal); N13.1 Hydronephrosis with ureteral stricture, not elsewhere classified; N17.9 Acute kidney failure, unspecified; I10 Essential (primary) hypertension; F41.9 Anxiety disorder, unspecified; F17.210 Nicotine dependence, cigarettes, uncomplicated; Z79.899 Other long term (current) drug therapy; Z90.710 Acquired absence of both cervix and uterus; Z90.722 Acquired absence of ovaries, bilateral; Z92.21 Personal history of antineoplastic chemotherapy
CPT/HCPCS: 52332; 74420; 87070; 87075; 87077; 87102; 87106; 87186; 87205; C1758; C1769; C2617; J0690; J1100; J1170; J2250; J2405; J2704; J3010; J7120; Q9967